=== PATIENT | female | born 1965 | race Caucasian/White ===

== ENCOUNTER 2016-09-13 13:58 | Emergency (ER) | payer OTHER ==
[~2016-09-13] VITALS: Wt 110.5 kg
[~2016-09-13 13:58] MED LIST: ACET-2158 PO; AZIT250T94 PO; BEN25 PO; DOCU-144 PO; FER325 PO; LOSA25TA47 PO; UDROBDM PO
[2016-09-13 14:08] VITALS: Wt 110.5 kg
[2016-09-13] MEDS ORDERED: SOD CHLORIDE 0.9% 1,000 ML IV STA (14:47)
[2016-09-13 15:22] LABS: BASOPHILS % 0.5 % (0.0-2.0); EOSINOPHILS # 0.1 10^3/ul (0.0-0.5); EOSINOPHILS % 2.1 % (0.0-7.0); HEMATOCRIT 28.3 % (37.0-47.0); HEMOGLOBIN 8.5 g/dl (12.0-16.0); LYMPHOCYTES # 1.3 10^3/ul (0.8-2.9); LYMPHOCYTES % 23.1 % (15.0-51.0); MEAN CORPUSCULAR HEMOGLOBIN 18.1 pg (29.0-33.0); MEAN CORPUSCULAR HGB CONC 30.1 g/dl (32.0-37.0); MEAN CORPUSCULAR VOLUME 60.1 fl (82.0-101.0); MEAN PLATELET VOLUME 7.4 fl (7.4-10.4); MONOCYTE # 0.4 10^3/ul (0.3-0.9); MONOCYTES % 7.9 % (0.0-11.0); NEUTROPHIL # 3.7 10^3/ul (1.6-7.5); NEUTROPHILS % 66.4 % (39.0-77.0); PLATELET COUNT 338 10^3/UL (140-440); RED CELL DISTRIBUTION WIDTH 19.3 % (11.5-14.5); UNCORRECTED WBC 5.6 10^3/ul (4.8-10.8); WHITE BLOOD COUNT 5.6 10^3/ul (4.8-10.8)
[2016-09-13 15:28] LABS: CONDITION 1; LH ANALYZER COMMENTS 1
[2016-09-13 15:32] LABS: INR 0.95; PROTIME 12.7 Sec (12.2-14.2)
[2016-09-13 15:33] LABS: PARTIAL THROMBOPLASTIN TIME 28.8 Sec (25.0-35.0)
[2016-09-13 15:41] LABS: ALBUMIN 4.1 g/dl (3.3-4.9); CHLORIDE 105 mmol/L (97-110)
[2016-09-13 15:42] LABS: POTASSIUM 3.9 mmol/L (3.5-5.1); SODIUM 142 mmol/L (135-144)
[2016-09-13 15:44] LABS: ALANINE AMINOTRANSFERASE 23 IU/L (13-69); ALBUMIN/GLOBULIN RATIO 0.95; ALKALINE PHOSPHATASE 65 IU/L (42-121); ANION GAP 14 (8-16); ASPARTATE AMINO TRANSFERASE 25 IU/L (15-46); BILIRUBIN,INDIRECT 0.1 mg/dl (0-1.1); BILIRUBIN,TOTAL 0.1 mg/dl (0.2-1.3); BLOOD UREA NITROGEN 12 mg/dl (7-20); CALCIUM 8.8 mg/dl (8.4-10.2); CARBON DIOXIDE 27 mmol/L (21-31); CREATININE 0.63 mg/dl (0.44-1.00); GLUCOSE 96 mg/dl (70-220); TOTAL PROTEIN 8.4 g/dl (6.1-8.1)
[2016-09-13 15:55] LABS: TROPONIN-I < 0.012 ng/ml (0.00-0.12)
--- NOTE | 2016-09-13 16:10 | RADRPT ---
PROCEDURE: US Pelvis. CLINICAL INDICATION: Abnormal vaginal bleeding. Postmenopausal. TECHNIQUE: The pelvis was evaluated with transabdominal and transvaginal sonography in the axial a nd sagittal planes. COMPARISON: No prior study is available for comparison. FINDINGS: Uterus: 11.2 x 7.1 x 8.2 cm. Endometrium: 18.0 mm. Right ovary: 4.9 x 3.1 x 3.7 cm. Left ovary: Not visualized. Uterine masses: There is a hypoechoic fundal mass consistent with a fibroid measuring 3.7 x 2.1 x 3. 8 cm Ovarian masses: There is a benign-appearing right ovarian cyst measuring 3.7 x 2.8 x 2.9 cm. There are no internal echoes or septations. The left ovary is not visualized. Color Doppler and pulsed Do ppler sonography demonstrate normal flow to the right ovary. Other pelvic masses: None. Free fluid: A small amount of free fluid is present in the pelvis. IMPRESSION: 1. Fundal fibroid measuring 3.8 cm. 2. Benign-appearing right ovarian cyst measuring up to 3.7 cm. Follow-up ultrasound in 3 months is advised. 3. Left ovary not visualized. 4. Thickened endometrium measuring 18.0 mm. Endometrial sampling should be considered. 5. Otherwise unremarkable study. RPTAT: QQ .John Kim MD, Date Time Electronically viewed and signed by .John Kim MD, on 09/13/2016 16:10 .R/
[2016-09-13 16:15] LABS: ADD UMIC YES; URINE BILIRUBIN (Dip) NEGATIVE (NEGATIVE); URINE BLOOD (Dip) 3+ (NEGATIVE); URINE COLOR LT. YELLOW (YELLOW); URINE GLUCOSE (Dip) NEGATIVE (NEGATIVE); URINE KETONES (Dip) NEGATIVE (NEGATIVE); URINE LEUKOCYTE ESTERASE (Dip) NEGATIVE (NEGATIVE); URINE NITRITE (Dip) NEGATIVE (NEGATIVE); URINE TOTAL PROTEIN (Dip) NEGATIVE (NEGATIVE); URINE UROBILINOGEN (Dip) 0.2 E.U./dL (0.1-1.0)
[2016-09-13] MEDS ORDERED: HYD25 PO (16:21)
--- NOTE | 2016-09-13 16:28 | ERD ---
ER Documentation Chief Complaint Date/Time DATE: 09/13/16 TIME: 16:25 Chief Complaint VAG BLEED SINCE 1 WEEK AGO. NO DYSURIA PER PT HPI 51-year-old woman complains of 1 week of irregular vaginal bleeding and recent irregular menstruation. She denies pelvic or abdominal pain or cramping, no dysuria, no loss of consciousness, no complaints of dizziness, no chest pain or shortness of breath. Patient later stated she does have a history of anemia and has never had transfusion, and is currently not using iron supplements. Patient has had no fevers or chills. ROS All systems reviewed and are negative except as per history of present illness. Medications Home Meds Active Scripts Ferrous Sulfate* (Ferrous Sulfate*) 325 Mg Tabec, 325 MG PO TID, #90 TAB Prov:JOSELITO MENDIOLA MD 09/13/16 Hydrochlorothiazide* (Hydrochlorothiazide*) 25 Mg Tab, 50 MG PO DAILY, #30 TAB Prov:JOSELITO MENDIOLA MD 09/13/16 Discontinued Scripts Guaifenesin-Dextromethorphan* (Robitussin* DM) 100MG/10MG/5ML Syrup, 5 ML PO Q4H Y for COUGH, #100 ML Prov:SELWYN DEJESUS PA-C 04/24/16 Azithromycin* (Zithromax*) 250 Mg Tablet, 250 MG PO .ZPACK DIRECTED, #6 TAB TAKE 500 MG (2 TABS) THE FIRST DAY THEN 250 MG (1 TAB) DAYS 2-5 Prov:SLEWYN DEJESUS PA-C 04/24/16 Losartan Potassium* (Cozaar*) 25 Mg Tab, 50 MG PO DAILY for 30 Days Prov:SON AZAR MD 11/26/14 Ferrous Sulfate* (Ferrous Sulfate*) 325 Mg Tabec, 325 MG PO BID for 30 Days Prov:SON AZAR MD 11/26/14 Docusate Sodium* (Colace*) 100 Mg Cap, 100 MG PO DAILY, #10 Prov:SON AZAR MD 11/26/14 Diphenhydramine Hcl* (Benadryl*) 25 Mg Cap, 25 MG PO Q6H Y for ITCHING for 1 Day , CAP Prov:SON AZAR MD 11/26/14 Acetaminophen (TYLENOL 325 MG TAB) 325 Mg Tab, 325 MG PO Q6H Y for PAIN AND OR ELEVATED TEMP for 10 Days, TAB Prov:SON AZAR MD 11/26/14 Allergies Allergies: Coded Allergies: No Known Drug Allergies (Verified Allergy, Mild, 12/20/09) PMhx/Soc Hypertension, anemia History of Surgery: Yes Anesthesia Reaction: No Hx Neurological Disorder: No Hx Respiratory Disorders: No Hx Cardiac Disorders: Yes (HTN) Hx Psychiatric Problems: No Hx Miscellaneous Medical Probl: No Hx Alcohol Use: No Hx Substance Use: No Hx Tobacco Use: No Smoking Status: Never smoker FmHx Family History: No diabetes Physical Exam Vitals Vital Signs Date Time Temp Pulse Resp B/P Pulse Ox O2 Delivery O2 Flow Rate FiO2 09/13/16 16:50 77 18 167/88 98 Room Air 09/13/16 14:08 98.1 85 20 222/110 99 Physical Exam GENERAL: Well-developed, well-nourished, well-hydrated, in no apparent distress , looks nontoxic in appearance HEENT: Moist mucous membranes, pink conjunctiva, no cervical spine tenderness or step-off deformities, no goiter, no jaundice or icterus, extraocular movements intact without pain. No submandibular induration, and no pharyngeal erythema NEURO: Alert and oriented 3, cranial nerves II through XII intact bilaterally, pupils equal round reactive to light, no focal deficits or facial asymmetry, sensation intact distally Strength 5/5 in upper and lower extremities bilaterally CARDIAC: Regular rate and rhythm, no murmurs rubs or gallops LUNGS: Clear bilaterally no wheezing crackles or stridor ABDOMEN: Soft nontender, no guarding, no rigidity, no rebound, no psoas sign no obturator sign. Normoactive bowel sounds SKIN: Warm and dry to touch, no abrasions, contusions, or hematomas, no lacerations, no ecchymosis, no target lesions, and without ulcers EXTREMITIES: No clubbing cyanosis or edema, calves are bilaterally symmetrical, no Homans sign, no popliteal cord sign. Distal pulses equal and bilateral PSYCH: Normal affect without agitation or irritability Result Diagram: 09/13/16 1510 09/13/16 1510 Results 24 hrs Laboratory Tests Test 09/13/16 15:10 09/13/16 16:00 Activated Partial Thromboplast Time 28.8Sec Alanine Aminotransferase (ALT/SGPT) 23IU/L Albumin 4.1g/dl Albumin/Globulin Ratio 0.95 Alkaline Phosphatase 65IU/L Anion Gap 14 Aspartate Amino Transf (AST/SGOT) 25IU/L Basophils # 0.010^3/ul Basophils % 0.5% Beta HCG, Quantitative < 2.4mIU/ml Blood Morphology Comment Blood Urea Nitrogen 12mg/dl Calcium Level 8.8mg/dl Carbon Dioxide Level 27mmol/L Chloride Level 105mmol/L Creatinine 0.63mg/dl Direct Bilirubin 0.00mg/dl Eosinophils # 0.110^3/ul Eosinophils % 2.1% Globulin 4.30g/dl Glucose Level 96mg/dl Hematocrit 28.3% Hemoglobin 8.5g/dl INR International Normalized Ratio 0.95 Indirect Bilirubin 0.1mg/dl Lymphocytes # 1.310^3/ul Lymphocytes % 23.1% Mean Corpuscular Hemoglobin 18.1pg Mean Corpuscular Hemoglobin Concent 30.1g/dl Mean Corpuscular Volume 60.1fl Mean Platelet Volume 7.4fl Monocytes # 0.410^3/ul Monocytes % 7.9% Neutrophils # 3.710^3/ul Neutrophils % 66.4% Nucleated Red Blood Cells # 0.010^3/ul Nucleated Red Blood Cells % 0.0/100WBC Platelet Count 61030^3/UL Potassium Level 3.9mmol/L Prothrombin Time 12.7Sec Prothrombin Time Ratio 1.0 Red Blood Count 4.7010^6/ul Red Cell Distribution Width 19.3% Sodium Level 142mmol/L Total Bilirubin 0.1mg/dl Total Protein 8.4g/dl Troponin I < 0.012ng/ml White Blood Count 5.610^3/ul Urine Bacteria FEW Urine Bilirubin NEGATIVE Urine Clarity SLIGHTLY CLOUDY Urine Color LT. YELLOW Urine Glucose NEGATIVE% Urine Hemoglobin 3+ Urine Ketones NEGATIVE Urine Leukocyte Esterase NEGATIVE Urine Microscopic RBC >200/HPF Urine Microscopic WBC NONE SEEN/HPF Urine Nitrite NEGATIVE Urine Specific [place] 1.025 Urine Squamous Epithelial Cells MODERATE Urine Total Protein NEGATIVE Urine Urobilinogen 0.2 E.U./dL Urine pH 6.0 Current Medications Medications (Trade) Dose Ordered Sig/Dannielle Route PRN Reason Start Time Stop Time Status Last Admin Dose Admin Sodium Chloride (NS) 1,000 ml @ 1,000 mls/hr Q1H STAT IV 09/13/16 14:47 09/13/16 15:46 DC 09/13/16 15:16 Clonidine (Catapres) 0.1 mg ONCE ONCE PO 09/13/16 15:00 09/13/16 15:01 DC 09/13/16 15:20 Procedures/MDM IV line was established patient was placed on cardiac care nurse rhythm strip revealed a sinus rhythm at about 70 bpm with upright P and T waves. I administered 1 L normal saline intravenously and clonidine 0.1 mg p.o. for hypertension EKG performed, read by me: 74 bpm, normal sinus rhythm, normal axis, no acute ST segment changes, narrow QRS complex, with good R-wave progression in precordial leads. Urine analysis was negative for infection, test was negative. CBC revealed anemia with a hemoglobin of 8.5 although I did review her chart and previous levels have been similar. Electrolytes were unremarkable, liver function tests were normal. Troponin was negative, coagulation profile was unremarkable. Nonobstetric pelvic ultrasound was performed revealing an ovarian cyst as well as uterine fibroid. Please refer to radiologist dictation for full report. Patient had no orthostatic symptoms going from a laying to standing position. 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 I suspect irregular menses secondary to menopause although she will have to follow-up for ovarian cyst and fibroid uterus. Differential diagnoses considered, included but not limited to ovarian torsion, ectopic , pelvic inflammatory disease, cervicitis, abdominal aortic aneurysm, sepsis, stroke, meningitis, encephalitis, pneumonia, appendicitis, cholecystitis, bowel obstruction, pyelonephritis, nephrolithiasis, cystitis, as well as metabolic, hematologic, and electrolyte abnormalities. As well as abscess, cellulitis, fractures, and dislocations. Patient feels much better at this time, and vital signs are normal, symptoms have improved. I did give strict instructions to return to the ED if symptoms continue or worsen, patient will otherwise follow-up with primary care physician. Patient understood instructions and agreed to plan. Departure Diagnosis: Primary Impression: Fibroid Uterine leiomyoma location: intramural Qualified Code: D25.1 - Intramural leiomyoma of uterus Additional Impressions: Menopausal bleeding Ovarian cyst Laterality: right Qualified Code: N83.201 - Cyst of right ovary Vaginal bleeding Hypertension Hypertension type: essential hypertension Qualified Code: I10 - Essential hypertension Condition: Good Patient Instructions: Menopause: Effects of Low Estrogen Levels , Hypertension , Established, Ovarian Cyst, Uterine Fibroids JOSELITO MENDIOLA MD Sep 13, 2016 16:28
[2016-09-13] MEDS ORDERED: FER325 PO (16:29)
[2016-09-13 16:46] LABS: BACTERIA,URINE FEW; SQUAMOUS EPITHELIAL CELL,UR MODERATE; URINE RBCS >200 /HPF (0)
[2016-09-13 16:50] VITALS: BP 167/88; PULSE 77; RESP 18
== END 2016-09-13 16:53 | disposition home or self-care (01) ==
LOC: E/R 13:58
DX: D25.1 Intramural leiomyoma of uterus (principal); N95.0 Postmenopausal bleeding; N83.201 Unspecified ovarian cyst, right side; I10 Essential (primary) hypertension
CPT/HCPCS: 76830; 76856; 80053; 81001; 84484; 84702; 85025; 85610; 85730; 93005; J7030; 36415; 81003

== ENCOUNTER 2016-09-23 14:36 | Emergency (ER) | payer OTHER ==
[~2016-09-23] VITALS: Wt 95.6 kg
[~2016-09-23 14:36] MED LIST changes: -ACET-2158 PO; -AZIT250T94 PO; -BEN25 PO; -DOCU-144 PO; +HYD25 PO; -LOSA25TA47 PO; -UDROBDM PO
[2016-09-23] MEDS ORDERED: SOD CHLORIDE 0.9% 1,000 ML IV STA (15:47)
--- NOTE | 2016-09-23 16:23 | RADRPT ---
PROCEDURE: US Pelvis. CLINICAL INDICATION: Abnormal vaginal bleeding. TECHNIQUE: The pelvis was evaluated with transabdominal sonography in the axial and sagittal plane s. COMPARISON: No prior study is available for comparison. FINDINGS: This is a limited study due to the urinary bladder and transvaginal sonography not performed. The u terus is not well seen but measures approximately 8.1 x 5.4 x 6.5 cm. The endometrium is not visual ized. The ovaries are not visualized. There is no other pelvic mass or free fluid. IMPRESSION: 1. Limited study. 2. Grossly normal in size uterus. 3. Endometrium and ovaries not visualized. RPTAT: QQ .John Kim MD, Date Time Electronically viewed and signed by .John Kim MD, on 09/23/2016 16:22 .R/
[2016-09-23 16:29] LABS: BASOPHILS % 0.3 % (0.0-2.0); EOSINOPHILS # 0.2 10^3/ul (0.0-0.5); EOSINOPHILS % 3.2 % (0.0-7.0); HEMATOCRIT 30.6 % (37.0-47.0); HEMOGLOBIN 9.6 g/dl (12.0-16.0); LYMPHOCYTES # 1.6 10^3/ul (0.8-2.9); LYMPHOCYTES % 24.8 % (15.0-51.0); MEAN CORPUSCULAR HEMOGLOBIN 20.7 pg (29.0-33.0); MEAN CORPUSCULAR HGB CONC 31.5 g/dl (32.0-37.0); MEAN CORPUSCULAR VOLUME 65.6 fl (82.0-101.0); MEAN PLATELET VOLUME 7.6 fl (7.4-10.4); MONOCYTE # 0.5 10^3/ul (0.3-0.9); MONOCYTES % 7.7 % (0.0-11.0); PLATELET COUNT 308 10^3/UL (140-440); RED BLOOD COUNT 4.66 10^6/ul (4.20-5.40); RED CELL DISTRIBUTION WIDTH 19.2 % (11.5-14.5); UNCORRECTED WBC 6.3 10^3/ul (4.8-10.8); WHITE BLOOD COUNT 6.3 10^3/ul (4.8-10.8)
[2016-09-23 16:30] LABS: CONDITION 1; LH ANALYZER COMMENTS 1; SUSPECT 1
[2016-09-23 16:32] LABS: ADD UMIC YES; URINE BILIRUBIN (Dip) NEGATIVE (NEGATIVE); URINE BLOOD (Dip) 3+ (NEGATIVE); URINE COLOR LT. YELLOW (YELLOW); URINE GLUCOSE (Dip) NEGATIVE (NEGATIVE); URINE KETONES (Dip) NEGATIVE (NEGATIVE); URINE LEUKOCYTE ESTERASE (Dip) NEGATIVE (NEGATIVE); URINE NITRITE (Dip) NEGATIVE (NEGATIVE); URINE TOTAL PROTEIN (Dip) NEGATIVE (NEGATIVE); URINE UROBILINOGEN (Dip) 0.2 E.U./dL (0.1-1.0)
[2016-09-23 16:42] LABS: URINE RBCS >50 /HPF (0)
[2016-09-23 16:49] LABS: POTASSIUM 3.3 mmol/L (3.5-5.1)
[2016-09-23] MEDS ORDERED: HYD25 PO (16:49)
[2016-09-23 16:51] LABS: CREATININE 0.65 mg/dl (0.44-1.00)
[2016-09-23 16:52] LABS: CALCIUM 8.8 mg/dl (8.4-10.2)
[2016-09-23] MEDS ORDERED: SOD CHLORIDE 0.9% 1,000 ML IV ONE (17:00)
[2016-09-23] MEDS ORDERED: morphine 2 MG INJ IV ONE (17:00)
[2016-09-23 18:17] LABS: HEMATOCRIT 28.9 % (37.0-47.0); HEMOGLOBIN 9.2 g/dl (12.0-16.0)
[2016-09-23] MEDS ORDERED: MEDR10TA2 PO (18:31)
[2016-09-23] MEDS ORDERED: morphine 4 MG/ML VIAL IV STA (18:32)
[2016-09-23] MEDS ORDERED: HYDR-906 PO (18:52)
--- NOTE | 2016-09-23 18:52 | ERD ---
ER Documentation Chief Complaint Date/Time DATE: 09/23/16 TIME: 18:45 Chief Complaint HEAVY VAG BLEED FOR 2 WKS. SEEN FOR SAME 2 WKS AGO. 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 2 weeks ago she was seen for this. Workup was obtained and at that time her hemoglobin was 8.5 according to my EMR review. She states that she is feeling weak and dizzy the reason she came in is that she is taking a hot shower she felt like she was going to faint. She did not fall down or strike her head but felt very lightheaded. Vaginal bleeding is about the same. She does not have vaginal bleeding occurring right now but had a lot last night. She has not yet made a plan for communications strategist as instructed last time but she intends to do so. ROS All systems reviewed and are negative except as per history of present illness. Medications Home Meds Active Scripts Medroxyprogesterone Acetate* (Provera*) 10 Mg Tablet, 10 MG PO DAILY for 7 Days , TAB Prov:IVETTE RAMIRES DO 09/23/16 Ferrous Sulfate* (Ferrous Sulfate*) 325 Mg Tabec, 325 MG PO TID, #90 TAB Prov:JOSELITO MENDIOLA MD 09/13/16 Reported Medications Hydrochlorothiazide* (Hydrochlorothiazide*) 25 Mg Tab, 25 MG PO DAILY, #30 TAB 09/23/16 Discontinued Scripts Hydrochlorothiazide* (Hydrochlorothiazide*) 25 Mg Tab, 50 MG PO DAILY, #30 TAB Prov:JOSELITO MENDIOLA MD 09/13/16 Allergies Allergies: Coded Allergies: No Known Drug Allergies (Verified Allergy, Mild, 12/20/09) PMhx/Soc History of Surgery: Yes ( ) Anesthesia Reaction: No Hx Neurological Disorder: No Hx Respiratory Disorders: No Hx Cardiac Disorders: Yes (HTN) Hx Psychiatric Problems: No Hx Miscellaneous Medical Probl: Yes (UTERINE FIBROID) Hx Alcohol Use: No Hx Substance Use: No Hx Tobacco Use: No Smoking Status: Never smoker Physical Exam Vitals Vital Signs Date Time Temp Pulse Resp B/P Pulse Ox O2 Delivery O2 Flow Rate FiO2 09/23/16 16:30 74 16 143/86 99 Room Air 09/23/16 14:39 98.0 77 21 188/91 98 Physical Exam Const: [] No distress Head: Atraumatic Eyes: Normal Conjunctiva, EOMI, PRL ENT: Normal External Ears, Nose and Mouth. Neck: Full range of motion..~ No meningismus. Resp: Clear to auscultation bilaterally Cardio: Regular rate and rhythm, no murmurs Abd: Soft, non tender, non distended. Normal bowel sounds Skin: No petechiae or rashes Back: No midline or flank tenderness Ext: No cyanosis, or edema Neur: Awake and alert and oriented 3, no focal deficits. Result Diagram: 09/23/16 1800 09/23/16 1610 Results 24 hrs Laboratory Tests Test 09/23/16 16:10 09/23/16 18:00 Anion Gap 14 Basophils # 0.010^3/ul Basophils % 0.3% Beta HCG, Quantitative < 2.4mIU/ml Blood Morphology Comment Blood Urea Nitrogen 12mg/dl Calcium Level 8.8mg/dl Carbon Dioxide Level 30mmol/L Chloride Level 100mmol/L Creatinine 0.65mg/dl Eosinophils # 0.210^3/ul Eosinophils % 3.2% Glucose Level 80mg/dl Hematocrit 30.6% 28.9% Hemoglobin 9.6g/dl 9.2g/dl Lymphocytes # 1.610^3/ul Lymphocytes % 24.8% Mean Corpuscular Hemoglobin 20.7pg Mean Corpuscular Hemoglobin Concent 31.5g/dl Mean Corpuscular Volume 65.6fl Mean Platelet Volume 7.6fl Monocytes # 0.510^3/ul Monocytes % 7.7% Neutrophils # 4.010^3/ul Neutrophils % 64.0% Nucleated Red Blood Cells # 0.010^3/ul Nucleated Red Blood Cells % 0.0/100WBC Platelet Count 23121^3/UL Potassium Level 3.3mmol/L Red Blood Count 4.6610^6/ul Red Cell Distribution Width 19.2% Sodium Level 141mmol/L Urine Bilirubin NEGATIVE Urine Clarity SLIGHTLY CLOUDY Urine Color LT. YELLOW Urine Glucose NEGATIVE% Urine Hemoglobin 3+ Urine Ketones NEGATIVE Urine Leukocyte Esterase NEGATIVE Urine Microscopic RBC >50/HPF Urine Microscopic WBC 0-2/HPF Urine Nitrite NEGATIVE Urine Specific [place] 1.020 Urine Total Protein NEGATIVE Urine Urobilinogen 0.2 E.U./dL Urine pH 6.0 White Blood Count 6.310^3/ul Current Medications Medications (Trade) Dose Ordered Sig/Dannielle Route PRN Reason Start Time Stop Time Status Last Admin Dose Admin Sodium Chloride (NS) 1,000 ml @ 1,000 mls/hr Q1H STAT IV 09/23/16 15:47 09/23/16 16:46 DC 09/23/16 16:21 Morphine Sulfate 2 mg 2 mg ONCE ONCE IV 09/23/16 17:00 09/23/16 17:01 DC 09/23/16 16:44 Sodium Chloride (NS) 1,000 ml @ 1,000 mls/hr Q1H ONCE IV 09/23/16 17:00 09/23/16 17:59 DC 09/23/16 18:00 Morphine Sulfate (morphine) 4 mg ONCE STAT IV 09/23/16 18:32 09/23/16 18:33 DC Procedures/MDM Prolonged dysfunctional uterine bleeding a 51-year-old female. IV was established she is placed on a monitoring manager which showed normal sinus rhythm throughout. EKG was obtained and shows no ischemic changes are tachycardia. Gynecological follow-up would be ideal. Patient's hemoglobin is actually gone up since last visit showing and iron is working. Give her 2 L of IV fluid and recheck hemoglobin and make sure that she wasn't dehydrated and showing artificially high hemoglobin concentration. Hemoglobin dropped only a slight amount. She is feeling better in emergency room after fluid resuscitation. I'm going to discharge her with instructions to actually obtain gynecological follow -up. A Haydee discharging with 10 mg of Provera daily for 1 week. Instructed to continue taking the iron. She requests medication for her back pain as well. Return precautions ER were given for continued blood loss. Neck monitor interpretation: Normal sinus rhythm without arrhythmia EKG interpretation: Sinus rhythm rate of 91, normal axis, no ST or T-wave changes concerning for acute ischemia. Normal EKG Departure Diagnosis: Primary Impression: Near syncope Additional Impressions: Anemia Vaginal bleeding Condition: Stable Patient Instructions: Anemia, Iron Deficiency (Adult), Dysfunctional Uterine Bleeding, Near Syncope, Unknown Additional Instructions: Call your primary care doctor TOMORROW for an appointment during the next 1-2 days.See the doctor sooner or return here if your condition worsens before your appointment time. IVETTE RAMIRES DO Sep 23, 2016 18:52
[2016-09-23 19:08] VITALS: BP 150/92; PULSE 82; RESP 20; TEMP 98.2
== END 2016-09-23 19:09 | disposition home or self-care (01) ==
LOC: E/R 14:36
DX: R55 Syncope and collapse (principal); D64.9 Anemia, unspecified; I10 Essential (primary) hypertension
CPT/HCPCS: 76856; 80048; 81001; 84702; 85014; 85018; 85025; 86850; 86900; 86901; J2270; J7030; 36415; 81003; 93005; 96361; 96374